=== PATIENT | male | born 1960 | race Caucasian/White ===

== ENCOUNTER 2024-12-07 14:42 | Outpatient (CLI) | payer BC, SELFPAY ==
--- NOTE | 2024-12-07 | ECHO_ITS ---
Patient Info Name: Dylan Park Age: 64 years : 1960 Gender: Male Ht: 71 in Wt: 225 lbs BSA: 2.29 m2 HR: 81 bpm BP: 141 / 85 mmHg Heart Rhythm: Sinus Rhythm Technical Quality: Good Exam Date: 12/07/2024 3:21 PM Exam Location: Echo Lab Patient Status: Outpatient Admit Date: 12/07/2024 Staff Ordering Physician: Hailee, Aviva MCCONNELL Dehydration Unit Operator: Vanessa Deleon RDCS Attending Provider: Hailee, Aviva MCCONNELL Referring Physician: Hailee DURAN; Exam Type: CA echo doppler color flow Study Info Indications R94.31 - Abnormal electrocardiogram ECG EKG Complete two-dimensional, color flow and Doppler transthoracic echocardiogram is performed. Summary 1. Left ventricular chamber dimension is normal. 2. Left ventricular systolic function is normal, estimated at 55-60%. 3. The left ventricular diastolic function is grade I diastolic dysfunction. 4. Right ventricular systolic function is normal. 5. There is mild pulmonic regurgitation. Left Ventricle Left ventricular chamber dimension is normal. Left ventricular systolic function is normal, estimated at 55-60%. There is no increased left ventricular wall thickness. The left ventricular diastolic function is grade I diastolic dysfunction. Right Ventricle Right ventricular chamber dimension is normal. Right ventricular systolic function is normal. Left Atria Left atrial chamber dimension is normal. Right Atria Right atrial chamber dimension is normal. Atrial Septum Intact interatrial septum visualized by color flow imaging. Aortic Valve The aortic valve is trileaflet. There is no aortic valve stenosis. There is no aortic valve regurgitation. Pulmonic Valve The pulmonic valve is not well visualized. There is mild pulmonic regurgitation. Mitral Valve There is trace mitral valve regurgitation. Tricuspid Valve There is trace tricuspid valve regurgitation. Pericardium/Pleural The pericardium appears epicardial fat pad. There is no pericardial effusion. Inferior Vena Cava Normal inferior vena cava with >50% collapse upon inspiration consistent with normal right atrial pressure, 3 mmHg. Aorta The aortic root size at the sinus of Valsalva is normal. Left Ventricular Outflow Tract Name Value Normal LVOT Doppler LVOT Peak Gradient 5 mmHg LVOT Mean Gradient 2 mmHg LVOT VTI 20 cm LVOT VTI/AV VTI Ratio 0.9 Pulmonic Valve Name Value Normal RVOT Doppler RVOT Peak Gradient 3 mmHg PV Doppler PV Peak Gradient 6 mmHg Mitral Valve Name Value Normal MV Doppler MV Decel [place] 380 cm/s2 MV PHT 66 ms MV Area (PHT) 3.3 cm2 4.0-5.0 MV Diastolic Function MV E Peak Velocity 87 cm/s MV A Peak Velocity 121 cm/s MV E/A 0.7 MV Decel Time 229 ms MV Annular TDI MV E/e' (Septal) 10.9 <=8.0 MV E/e' (Lateral) 9.4 <=8.0 MV E/e' (Average) 10.1 Tricuspid Valve Name Value Normal TV Regurgitation Doppler TR Peak Velocity 224 cm/s TR Peak Gradient 20 mmHg Estimated PAP/RSVP RA Pressure 3 mmHg <=5 PA Systolic Pressure 23 mmHg <36 RV Systolic Pressure 23 mmHg <36 Aorta Name Value Normal Ascending Aorta Ao Root Diameter (MM) 3.8 cm Ao Root Diam Index (MM) 1.7 cm/m2 Aortic Valve Name Value Normal AV Doppler AV Peak Velocity 125 cm/s AV Peak Gradient 6 mmHg AV Mean Gradient 3 mmHg AV VTI 22 cm Ventricles Name Value Normal LV Dimensions 2D/MM IVS Diastolic Thickness (2D) 0.9 cm 0.6-1.0 LVID Diastole (2D) 5.2 cm 4.2-5.8 LVIW Diastolic Thickness (2D) 0.8 cm 0.6-1.0 LVID Systole (2D) 3.3 cm 2.5-4.0 LV Mass (2D Cubed) 155.01 g 88.00-224.00 LV Mass Index (2D Cubed) 68 g/m2 49-115 Relative Wall Thickness (2D) 0.30 LV Fractional Shortening/Ejection Fraction 2D/MM LV Fractional Shortening (2D) 37 % 25-43 LV EF (2D Teicholz) 66 % 52-72 LV Diastolic Volume (4C MOD) 89 ml LV EF (4C MOD) 64 % LV Diastolic Volume (2C MOD) 86 ml LV EF (2C MOD) 63 % LV Diastolic Volume (BP MOD) 87 ml 62-150 LV Diastolic Volume Index (BP MOD) 38 ml/m2 34-74 LV Systolic Volume (BP MOD) 33 ml 21-61 LV Systolic Volume Index (BP MOD) 15 ml/m2 11-31 LV EF (BP MOD) 62 % 52-72 LV Diastolic Length (4C) 8.4 cm LV Systolic Length (4C) 6.5 cm LV Stroke Volume (4C MOD) 57 ml Atria Name Value Normal LA Dimensions LA Dimension (MM) 3.3 cm 3.0-4.1 LA Volume (4C A-L) 25 ml LA Volume (BP A-L) 38 ml RA Dimensions RA Area (4C) 10.0 cm2 <=18.0 Report Signatures
--- OUTSIDE RECORDS SUMMARY | 2024-12-07 16:05 | XMS_ITS | Clinical Summary ---
Author Organization [facility] Address [address] [place] [address] Phone Care Team Providers Care Heavy Equipment Mechanic Name Role Phone Antonino Bear MD Primary Care Provider [phone] Allergies No known active allergies Medications HYDROcodone-abiodun taminophen (NORCO) 5-325 MG TabletIndicatio ns:Chronic pain of left knee Take 1 Tablet by mouth every 4 hours as needed for Moderate or more severe pain. 30 Tablet 04/03/2024 Active Active Problems Problem Noted Date Diagnosed Date Arthritis of left knee 11/16/2024 Encounters Date Type Department Care Team Description 12/07/2024 Telephone [facility] [address] [place] [address] Aviva Stephen, JEANETTE Follow-up 12/01/2024 Telephone [facility] [address] [place] [address] Antonino Bear MD Prior Authorization 11/28/2024 Transcribe Orders [facility] [address] [place] [address] Cody Baker MD S/P total knee arthroplasty, right (Primary Dx) 11/23/2024 [facility]phone [facility] [address] [place] [address] Antonino Bear MD Advice Only 11/22/2024 Travel 11/21/2024 Telephone [facility] Central Call Center [address] [place] [address] Antonino Bear MD Care Management 11/16/2024 2:15 PM FLUE GAS ANALYST Office Visit [facility] Medical Group [facility] [address] [place] [address] Aviva Stephen PAC Arthritis of left knee (Primary Dx); Pre-operative general physical examination Discharge Disposition: Discharged to home or Selfcare 11/15/2024 1:41 PM FLUE GAS ANALYST - 11/15/2024 11:59 PM FLUE GAS ANALYST Hospital Encounter [facility] Diagnostic Radiology [address] [place] [address] Cody Baker MD Discharge Disposition: Discharged to home or Selfcare 11/15/2024 1:14 PM FLUE GAS ANALYST - 11/15/2024 1:40 PM FLUE GAS ANALYST Hospital Encounter [facility] Cardiology Services [address] [place] [address] Cody Baker MD Discharge Disposition: Discharged to home or Selfcare 11/15/2024 Travel 11/10/2024 Transcribe Orders [facility] Preop/Pacu II [address] [place] [address] Cody Baker MD Preop testing (Primary Dx) from Last 3 Months Immunizations Immunization Administration Dates Next Due Covid-19 Vaccine, Vector-nr, Rs-ad26, Pf, 0.5 Ml (EMETERIO/J&J) 08/01/2021 TDAP Vaccine 04/24/2019 Family History Medical History Relation Name Comments Cancer Father unknown Stroke Mother Relation Name Status Comments Father Mother Social History Tobacco Use Types Packs/Day Years Used Date Smoking Tobacco: Never Smokeless Tobacco: Never Tobacco Cessation:Counseling Given: No Alcohol Use Standard Drinks/Week Comments Yes 0 (1 standard drink = 0.6 oz pur e alcohol) rare [facility] Utilities Answer Date Recorded In the past 12 months has e roomlinx, gas, oil, or water company threatened to shut off services in your home? No 12/21/2023 Social Connection and Isolation Panel [NHANES] A nswer Date Recorded In a typical week, how many times do you talk on the phone with family, friends, or neighbors? Twice a week 12/21/19 How often do you get togethe r with friends or relatives? Once a week 12/21/2023 How often do you attend chur ch or jehovah's witness services? 1 to 4 times per year 12/21/2023 Do you belong to any clubs o r organizations such as jainism groups, unions, fraternal or athletic groups, or school groups? Yes 12/21/2023 How often do you attend meet ings of the clubs or organizations you belong to? 1 to 4 times per year 12/21/2023 Are you , , di vorced, , never , or living with a partner? 12/21/2023 AUDIT-C Answer Date Recorded Q1: How often do you have a drink containing alc ohol? Monthly or less 12/21/2023 Q2: How many drinks containi ng alcohol do you have on a typical day when you are drinking? 1 or 2 12/21/2023 Q3: How often do you have si x or more drinks on one occasion? Never 12/21/2023 Overall Financial Resource Strain (CARDIA) Answe r Date Recorded How hard is it for you to pa y for the very basics like food, housing, medical care, and heating? Not very hard 12/21/2023 PHQ-2 Answer Date Recorded Total Score - Questions 1-9 0 11/04 [facility] - Occupational Stress Questionnaire Answer Date Recorded Do you feel stress - tense, restless, nervous, or anxious, or unable to sleep at night because your mind is troubled all the time - these days? Only a little 12/21/2023 Exercise Vital Sign Answer Date Recorde d On average, how many days pe r week do you engage in moderate to strenuous exercise (like a brisk walk)? 3 days 12/21/2023 On average, how many minutes do you engage in exercise at this level? 10 min 12/21/2023 Hunger Vital Sign Answer Date Recorded Within the past 12 months, y ou worried that your food would run out before you got the money to buy more. Never true 12/21/19 24 Within the past 12 months, t he food you bought just didn't last and you didn't have money to get more. Never true 12/21/2023 PRAPARE - Transportation Answer Date Re corded In the past 12 months, has l ack of transportation kept you from medical appointments or from getting medications? No 12/02 In the past 12 months, has l ack of transportation kept you from meetings, work, or from getting things needed for daily living? No 12/21/2023 Housing Stability Vital Sign Answer Wilton e Recorded In the last 12 months, was t here a time when you were not able to pay the mortgage or rent on time? No 12/21/2023 In the last 12 months, how many places have you lived? 1 12/21/2023 In the last 12 months, was t here a time when you did not have a steady place to sleep or slept in a mcfp (including now)? No 12/21/2023 Education Answer Date Recorded What is the highest level of school you have completed or the highest degree you have received? Some college, no degree 12/11/2021 Sex and Gender Information Value Date Recorded Sex Assigned at Not on file Legal Sex Male 12:12 AM CDT Gender Identity Not on file Sexual Orientation Not on file Last Filed Vital Signs Vital Sign Reading Time Taken Comments Blood Pressure 116/82 11/16/2024 2:13 PM FLUE GAS ANALYST Pulse 92 11/16/2024 2:13 PM FLUE GAS ANALYST Temperature 36.7 C (98.1 F) 11/16/2024 2:13 PM FLUE GAS ANALYST Respiratory Rate 16 03/29/2024 9:23 AM CDT Oxygen Saturation 99% 11/16/2024 2:13 PM FLUE GAS ANALYST Inhaled Oxygen Concentration - - Weight 100.7 kg (222 lb 0.1 oz) 11/22/2024 1:00 PM FLUE GAS ANALYST Height 179.1 cm (5' 10.51 ) 11/22/2024 1:[address] Body Mass Index 31.39 11/22/2024 1:00 PM FLUE GAS ANALYST Plan of Treatment Upcoming Encounters Date Type Department Care Team (Latest Contact Info) Description 12/12/2024 7:10 AM CDT Hospital Encounter [facility] Periop [address] [place] [address] Cody Baker MD 4 [facility] , [address] [place] [address] 12/12/2024 7:10 AM CDT - 12/12/2024 10:10 AM CDT Surgery [facility] Periop [address] [place] [address] Cody Baker MD 4 [facility] , [address] [place] [address] LEFT TOTAL KNEE ARTHROPLASTY, DEPUY-ATTUNE, COOLING UNIT-[facility], ONE LITER BETA RINSE, RODRICK/DEPUY CONF FOR 12/12 AT 0730 - DS 11/0612/19/2024 10:15 AM CDT Physical Therapy [facility] Rehab at [facility] [address] [facility], [address] [place] [address] Cody Baker MD 4 [facility] , [address] [place] [address] Liu Barron, [place] Discharge Disposition: Discharged to home or Selfcare 12/21/2024 9:00 AM CDT Office Visit [facility] Medical Group - Family Medicine - [place] [address] [place] [address] Antonino Bear MD [address]2 [facility] [address] [place] [address] Scheduled Procedures Name Priority Associated Diagnoses Date/Ti me TOTAL KNEE ARTHROPLASTY PRIMARY OSTEOARTHRITIS OF LEFT KNEE 12/12/2024 7:10 AM CDT Health Maintenance Due Date Last Done Comments Hepatitis C Virus (HCV) Screening 1960 Colonoscopy 2005 Colorectal Cancer Screening 2005 Cologuard 2010 Immunochemical Fecal Occult Blood 2010 Pneumococcal Immunization (5 0+ years) (1 of 1 - PCV) 2010 Zoster Immunization (1 of 2) 2010 Influenza Immunization (#1) 2024 SARS-COV-2 Immunization (2 - season) 2024 08/01/2021 Td Immunization Every 10 Yea rs (Adults With 1 Tdap) 04/24/2029 04/24/2019 Respiratory Syncytial Virus (RSV) Immunization (Adult) (1 - 1-dose 75+ series) 2035 DTaP/Tdap/Td Immunization Discontinued 04/24/2019 PSA Discussion Completed 12/17/2022, 10/23/2021 Hepatitis B Immunization Aged Out No longer eligible based on patient's age to complete this topic Meningococcal Immunization (ACWY) Aged Out No longer eligible based on patient's age to complete this topic Rotavirus Immunization Aged Out No lo nger eligible based on patient's age to complete this topic Procedures Procedure Name Priority Date/Time Associated Diagnosis Comments XR CHEST 2 VIEWS Routine 11/15/2024 1:47 PM FLUE GAS ANALYST Preop testing CBC WITH AUTO DIFFERENTIAL Routine 11/15/2024 1:26 PM FLUE GAS ANALYST Preop testing LIPID PANEL Routine 11/15/2024 1:26 PM FLUE GAS ANALYST Physical exam, annual (Adult) HEMOGLOBIN A1C W/ ESTIMATED GLUCOSE Routine 11/15/2024 1:26 PM FLUE GAS ANALYST Preop testing COMPLETE BLOOD COUNT (CBC) WITH DIFF Routine 11/15/2024 1:26 PM FLUE GAS ANALYST Preop testing CMP (COMPREHENSIVE METABOLIC PANEL) Routine 11/15/2024 1:26 PM FLUE GAS ANALYST Preop testing CULTURE, URINE Routine 11/15/2024 1:26 PM FLUE GAS ANALYST Preop testing EKG 12 LEAD Routine 11/15/2024 1:20 PM FLUE GAS ANALYST Preop testing PSA SCREEN Today 12/17/2022 4:11 PM CDT Screening for prostate cancer from Last 3 Months or Most Recently Relevant to Health Maintenance Results * XR CHEST 2 VIEWS (11/15/2024 1:47 PM FLUE GAS ANALYST) Anatomical Region Laterality Modality Chest N/A Digital Radiogra phy 11/17/2024 1:54 PM FLUE GAS ANALYST Impressions 11/17/2024 1:57 PM FLUE GAS ANALYST IMPRESSION: Minimal to mild bibasilar subsegmental atelectasis and scarring without definite evidence of focal consolidation. Narrative 11/17/2024 1:57 PM FLUE GAS ANALYST EXAM DESCRIPTION: XR CHEST 2 VIEWS REASON FOR STUDY: Pre operative chest xray for knee surgery. TECHNIQUE: Frontal and lateral radiographic view(s) of the chest. COMPARISON: None FINDINGS: The heart, mediastinum, and pulmonary vasculature are grossly unremarkable. There is no definite evidence of a pneumothorax. There is no definite evidence of focal consolidation or pleural effusion. There is a minimal to mild bibasilar subsegmental atelectasis and scarring. The osseous structures are acutely grossly unremarkable. THIS IS AN ELECTRONICALLY VERIFIED FINAL REPORT 11/17/2024 1:54 PM - Electronically signed by Usman Ness D.O. PS: PS Report ID: [id number] Reading Location: [id number] Procedure Note Usman Ness DO - 11/17/2024 EXAM DESCRIPTION: XR CHEST 2 VIEWS REASON FOR STUDY: Pre operative chest xray for knee surgery. TECHNIQUE: Frontal and lateral radiographic view(s) of the chest. COMPARISON: None FINDINGS: The heart, mediastinum, and pulmonary vasculature are grossly unremarkable. There is no definite evidence of a pneumothorax. There is no definite evidence of focal consolidation or pleural effusion. There is a minimal to mild bibasilar subsegmental atelectasis and scarring. The osseous structures are acutely grossly unremarkable. THIS IS AN ELECTRONICALLY VERIFIED FINAL REPORT 11/17/2024 1:54 PM - Electronically signed by Usman Ness D.O. PS: PS Report ID: [id number] Reading Location: [id number] IMPRESSION: Minimal to mild bibasilar subsegmental atelectasis and scarring without definite evidence of focal consolidation. Cody Baker MD IMG DIAGNOSTIC ORDERABLES Macie l Result * HEMOGLOBIN A1C W/ ESTIMATED GLUCOSE (11/15/2024 1:26 PM FLUE GAS ANALYST) HGB-A1C 5.2 4.0 - 6.0 % 11/15/2024 2:31 PM FLUE GAS ANALYST [facility] Est Average Glucose 102.5 mg/dL 11/15/2024 2:31 PM FLUE GAS ANALYST [facility] Blood Venipuncture / Unknown 11/15/2024 1:26 PM FLUE GAS ANALYST 11/15/2024 1:43 PM FLUE GAS ANALYST Narrative [facility] - 11/15/2024 2:31 PM FLUE GAS ANALYST HEMOGLOBIN A1C: DIABETIC PATIENTS: WELL-CONTROLLED: 6.2 - 7.0 INTERMEDIATE WELL-CONTROLLED: 7.0 - 9.0 POORLY-CONTROLLED: >9.0 Specimens containing greater than 5% of Hemoglobin F may result in lower than expected % HbA1C results. Cody Baker MD CHEMISTRY ORDERABLES Final Res ult [facility] [address] [place] [address] * (ABNORMAL) CBC WITH AUTO DIFFERENTIAL (11/15/2024 1:26 PM FLUE GAS ANALYST) WBC 5.97 4.00 - 12.00 10(3)/mcL 11/15/2024 1:46 PM FLUE GAS ANALYST [facility] RBC 4.91 4.40 - 5.80 10(6)/mcL 11/15/2024 1:46 PM FLUE GAS ANALYST [facility] HEMOGLOBIN (HGB) 16.4 13.0 - 16.5 g/dL 11/15/2024 1:46 PM FLUE GAS ANALYST [facility] HEMATOCRIT (HCT) 46.7 38.0 - 50.0 % 11/15/2024 1:46 PM [facility] MCV 95.1 82.0 - 96.0 fL 11/15/2024 1:46 PM [facility] MCH 33.4(H) 26.0 - 32.0 pg 11/15/2024 1:46 PM [facility] MCHC 35.1 31.0 - 36.0 g/dL 11/15/2024 1:46 PM [facility] PLATELET COUNT 261 140 - 440 10(3)/mcL 11/15/2024 1:46 PM [facility] RDW 12.0 11.8 - 15.5 % 11/15/2024 1:46 PM [facility] MPV 10.3 8.0 - 12.6 fL 11/15/2024 1:46 PM [facility] NEUTROPHILS 60.2 40.0 - 68.0 % 11/15/2024 1:46 PM [facility] LYMPHOCYTES 26.1 19.0 - 49.0 % 11/15/2024 1:46 PM [facility] MONOCYTES 9.2 3.0 - 13.0 % 11/15/2024 1:46 PM [facility] EOSINOPHILS 3.5 0.0 - 8.0 % 11/15/2024 1:46 PM [facility] BASOPHILS 1.0 0.0 - 1.0 % 11/15/2024 1:46 PM [facility] ABSOLUTE NEUTROPHILS 3.59 1.40 - 5.30 10(3)/mcL 11/15/2024 1:46 PM [facility] ABSOLUTE LYMPHOCYTES 1.56 0.90 - 3.30 10(3)/mcL 11/15/2024 1:46 PM [facility] ABSOLUTE MONOCYTES 0.55 0.10 - 0.90 10(3)/mcL 11/15/2024 1:46 PM [facility] ABSOLUTE EOSINOPHIL 0.21 0.00 - 0.50 10(3)/mcL 11/15/2024 1:46 PM FLUE GAS ANALYST [facility] ABSOLUTE BASOPHILS 0.06 0.00 - 0.10 10(3)/mcL 11/15/2024 1:46 PM FLUE GAS ANALYST [facility] NRBC PER 100 WBC 0 11/15/19 1:46 PM FLUE GAS ANALYST [facility] Blood Venipuncture / Unknown 11/15/2024 1:26 PM FLUE GAS ANALYST 11/15/2024 1:43 PM FLUE GAS ANALYST us Cody Baker MD HEMATOLOGY ORDERABLES Final Re sult [facility] [address] [place] [address] * (ABNORMAL) LIPID PANEL (11/15/2024 1:26 PM FLUE GAS ANALYST) CHOLESTEROL 132 <200 mg/dL 11/16/2024 3:06 PM FLUE GAS ANALYST [facility] TRIGLYCERIDES 57 <150 mg/dL 11/16/2024 3:06 PM [facility] HDL CHOLESTEROL 40(L) >40 mg/dL 3:06 PM [facility] LDL 81 <130 mg/dL 11/16/2024 3:06 PM [facility] VLDL 11 10 - 50 mg/dL 11/16/2024 3:06 PM [facility] CHOL/HDL RATIO 3.3 0.0 - 4.4 11/16/2024 3:06 PM FLUE GAS ANALYST [facility] NON-HDL CHOLESTEROL 92 <130 mg/dL 11/16/2024 3:06 PM [facility] IS THE PATIENT REQUIRED TO BE FASTING? No 11/16/2024 3:06 PM FLUE GAS ANALYST [facility] Blood Venipuncture / Unknown 11/15/2024 1:26 PM FLUE GAS ANALYST 11/16/2024 2:52 PM FLUE GAS ANALYST us Antonino Bear MD CHEMISTRY ORDERABLES Final Re sult [facility] [address] [place] [address] * CULTURE, URINE (11/15/2024 1:26 PM FLUE GAS ANALYST) CULTURE RESULTS No growth final 11/16/2024 4:22 PM FLUE GAS ANALYST [facility] Culture URINE SPECIMEN COLLECTION, CLEAN CATCH / Unknown Non-Phlebotomy Collection / Unknown 11/15/2024 1:26 PM FLUE GAS ANALYST 11/15/2024 1:43 PM FLUE GAS ANALYST us Cody Baker MD MICROBIOLOGY - GENERAL ORDERAB LES Final Result Performing Organization Address City/[facility]/ZIP Co de Phone Number [facility] [address] [place] [address], * (ABNORMAL) CMP (COMPREHENSIVE METABOLIC PANEL) (11/15/2024 1:26 PM FLUE GAS ANALYST) SODIUM 140 136 - 145 mmol/L 11/15/2024 3:34 PM FLUE GAS ANALYST [facility] POTASSIUM 3.8 3.5 - 5.1 mmol/L 11/15/2024 3:34 PM FLUE GAS ANALYST [facility] CHLORIDE 106 98 - 107 mmol/L 11/15/2024 3:34 PM [facility] CO2, VENOUS 26 22 - 30 mmol/L 11/15/2024 3:34 PM FLUE GAS ANALYST [facility] ANION GAP 11.8 <18.0 mmol/L 11/15/2024 3:34 PM FLUE GAS ANALYST [facility] GLUCOSE 104(H) 70 - 99 mg/dL 11/15/2024 3:34 PM FLUE GAS ANALYST [facility] BUN 13 8 - 26 mg/dL 11/15/2024 3:34 PM [facility] CREATININE, BLOOD 1.00 0.70 - 1.30 mg/dL 11/15/2024 3:34 PM FLUE GAS ANALYST [facility] BUN/CREATININE RATIO 13 12 - 20 ratio 11/15/2024 3:34 PM [facility] TOTAL PROTEIN 7.7 6.0 - 8.0 g/dL 11/15/2024 3:34 PM [facility] ALBUMIN 4.6 3.5 - 5.0 g/dL 11/15/2024 3:34 PM [facility] A/G RATIO 1.5 1.0 - 2.2 11/15/2024 3:34 PM [facility] CALCIUM 9.5 8.7 - 10.5 mg/dL 11/15/2024 3:34 PM [facility] T BILI 1.0 0.2 - 1.2 mg/dL 11/15/2024 3:34 PM [facility] SGOT (AST) 30 6 - 42 U/L 11/15/2024 3:34 PM [facility] SGPT (ALT) 32 6 - 55 U/L 11/15/2024 3:34 PM [facility] ALKALINE PHOSPHATASE 69 40 - 150 U/L 11/15/2024 3:34 PM [facility] IS THE PATIENT REQUIRED TO BE FASTING? No 11/15/2024 3:34 PM [facility] GFR, ESTIMATED >60 >=60 11/15/2024 3:34 PM [facility] Comment: Creatinine Clearance is the preferred criteria for selecting drug dose adjustments in renally impaired patients. The GFR is provided as additional pertinent clinical information. GFR is reported in mL/min/1.73 sq m. Calculation based on the Chronic Kidney Disease Epidemiology Collaboration (CKD- EPI) equation refit without adjustment for race. GFR, EST. >60 >=60 025 3:34 PM [facility] GFR, EST. NONAFRICAN >60 >=60 11/15/2024 3:34 PM [facility] Blood Venipuncture / Unknown 11/15/2024 1:26 PM FLUE GAS ANALYST 11/15/2024 1:43 PM FLUE GAS ANALYST Cody Baker MD CHEMISTRY ORDERABLES Final Res ult [facility] [place] [address] * EKG 12 LEAD (11/15/2024 1:20 PM FLUE GAS ANALYST) Ventricular Rate 89 BPM EXTERNAL EKG Atrial Rate 89 BPM EXTERNAL EKG P-R Interval 168 ms EXTERNAL EKG QRS Duration 78 ms EXTERNAL EKG Q-T Duration 346 ms EXTERNAL EKG QTC CALCULATION 420 ms EXTERNAL EKG P Welch 43 degrees EXTERNAL EKG R Welch -28 degrees EXTERNAL EKG T Welch 40 degrees EXTERNAL EKG 11/15/2024 1:20 PM FLUE GAS ANALYST Impressions EXTERNAL EKG - 11/16/2024 5:06 PM FLUE GAS ANALYST Normal sinus rhythm Cannot rule out Anterior infarct , age undetermined Abnormal ECG No previous ECGs available Confirmed by Felipe Weems ([id number]) on 11/16/2024 5:06:22 PM Narrative Procedure Note Felipe Weems MD - 11/16/2024 IMPRESSION: Normal sinus rhythm Cannot rule out Anterior infarct , age undetermined Abnormal ECG No previous ECGs available Confirmed by Felipe Weems ([id number]) on 11/16/2024 5:06:22 PM us Cody Baker MD IMG ECG ORDERABLES Final Resul t Performing Organization Address City/[facility] Co de Phone Number EXTERNAL EKG * PSA SCREEN (12/17/2022 4:11 PM CDT) PSA SCREEN, TOTAL 0.98 <=4.00 ng/mL 12/17/2022 5:52 PM CDT [facility] Blood Venipuncture / Unknown 12/17/2022 4:11 PM CDT 12/17/2022 4:56 PM CDT Narrative [facility] - 12/17/2022 5:52 PM CDT PSA NOTE: The PSA value should be used in conjunction with information available from clinical evaluation and other diagnostic procedures. us Antonino Bear MD CHEMISTRY ORDERABLES Final Re sult [facility] [address] [place] [address] from Last 3 Months or Most Recently Relevant to Health Maintenance Insurance GENERIC Care Teams Heavy Equipment Mechanic Relationship Specialty Start Date End Date Antonino eBar MD [address] [address] PCP - General Family Medicine 12/18/21
--- OUTSIDE RECORDS SUMMARY | 2024-12-07 16:05 | XMS_ITS | Patient Health Summary ---
Author Organization [facility] Address [address] [place] [address] Care Team Providers Care Diathermy Equipment Repairer Name Role Phone Antonino Bear MD Primary Care Provider [phone] Note from [facility],non-owned Affiliates and Associated Physician Practices is amultiple site organization consisting of ambulatory clinics and hospital sitesin [place], [place], [place] and [place]. This disclosure is being madepursuant to the Care Everywhere program and may not contain all information available regarding this patient. Last updated 18.[facility] Allergies No known active allergies Medications * Be aware that medications may not be up to date on this document. Alwaysverify current medications with the patient. * Cholecalciferol 50 MCG (2000 UT) Take 1 (one) tablet by mouth once daily * cyclobenzaprine (Flexeril) 10 MG tablet Take 1 (one) tablet by mouth 3 times daily as needed * HYDROcodone-acetaminophen ([place]) 5-325 MG tablet Take 1 (one) tablet by mouth as needed * Multiple Vitamin (Multi-Vitamins) TABS Take 1 (one) tablet by mouth once daily * naproxen (Naprosyn) 500 MG tablet(Started 03/31/2023) Take 1 (one) tablet by mouth as needed * tolterodine ER 24hr (Detrol LA) 2 MG capsule(Started 12/21/2022) Take 1 (one) capsule by mouth once daily * TURMERIC PO Take 1 tablet by mouth once daily * vitamin E (Tocopheryl) 100 UNIT capsule Take 1 (one) capsule by mouth once daily * ibuprofen (Motrin) 600 MG tablet Take 1 (one) tablet by mouth every 6 hours as needed for Pain Immunizations * TDAP (7yrs+)(Given 04/24/2019) Social History Tobacco Use Types Packs/Day Years Used Date Smoking Tobacco: Never Smokeless Tobacco: Never Alcohol Use Standard Drinks/Week Comments Yes 0 (1 standard drink = 0.6 oz pur e alcohol) occassionally Sex and Gender Information Value Date Recorded Sex Assigned at Not on file Gender Identity Not on file Sexual Orientation Not on file Last Filed Vital Signs Vital Sign Reading Time Taken Comments Blood Pressure 133/86 09/28/2023 1:03 PM [employer] Pulse 96 09/28/2023 1:03 PM [employer] Temperature - - Respiratory Rate - - Oxygen Saturation - - Inhaled Oxygen Concentration - - Weight 101.6 kg (224 lb) 09/28/2023 1:03 PM [employer] Height 180.3 cm (5' 11 ) 09/28/2023 1:03 PM [employer] Body Mass Index 31.24 09/28/2023 1:03 PM [employer] Care Teams Diathermy Equipment Repairer Relationship Specialty Start Date End Date Antonino Bear MD [address] [place] [id number] PCP - General Family Medicine 09/28/23
--- OUTSIDE RECORDS SUMMARY | 2024-12-07 16:05 | XMS_ITS | Referral Summary ---
Author Organization [facility] [place] [address] [place] [address] Address [address] [place] [address] Care Team Providers Care Hydro Electric Station Operator Name Role Phone Antonino Reich PT Unavailable UnavailPromise Pedersen WAREHOUSE FREIGHT HANDLER Unavailable Unavailab Antonino Hou MD Primary Care Provider [phone] Encounters Date Type Department Care Team Description 11/28/2024 Orders Only [facility] Medical [facility] Orthopedics and Sports Medicine [address] [place] [address] [address] [place] [address] Cody Baker MD S/P total knee arthroplasty, right (Primary Dx) 11/28/2024 Orders Only [facility] Orthopedics and Sports Medicine [address] [place] [address] [address] [place] [address] Cody Baker MD S/P total knee arthroplasty, right (Primary Dx) 11/28/2024 Telephone [facility] Orthopedics and Sports Medicine [address] [place] [address] [address] [place] [address] Cody Baker MD 11/21/2024 Telephone [facility] Orthopedics and Sports Medicine [address] [place] [address] [address] [place] [address] Sarah Beth Kay MA 11/21/2024 10:15 AM POLL WATCHER Office Visit [facility] Orthopedics and Sports Medicine [address] [place] [address] [address] [place] [address] Yaquelin Diego PA Primary osteoarthritis of left knee (Primary Dx) 09/18/2024 Telephone [facility] Orthopedics and Sports Medicine [address] [facility] [address] [place] [address] Cody Baker MD from Last 3 Months Allergies No known active allergies Medications HYDROcodone-acet aminophen (NORCO) 5-325 mg per tabletIndication s:Pain Take 1 tablet by mouth every 6 (six) hours as needed Active naproxen (NAPROSYN) 500 mg tablet Take 1 tablet (500 mg total) by mouth 2 (two) times a day as needed for pain Take with food 60 tablet 1 05/05/2022 Active Active Problems Problem Noted Date Diagnosed Date Primary osteoarthritis of left knee 08/04/2024 SNHL (sensory-neural hearing loss), asymmetrical 12/02/2022 Assessment & Plan (12/02/2022 3:39 PM POLL WATCHER): Hearing test - consider Right ear tube placement in the Operating room based on results Finish Amoxicillin Continue to work with Dentist regarding teeth [facility] Allergic rhinitis 2020 Assessment & Plan (2020 4:06 PM CDT): Flonase 2 sprays into each nostril while looking down over the sink, do not sniff in or blow nose after use for at least 30 minutes Continue Claritin daily or Cetirizine (Zyrtec) 10 mg daily Augmentin with a meal twice daily for 10 days Follow up with Dentist Dental caries 2020 Assessment & Plan (2020 4:06 PM CDT): Flonase 2 sprays into each nostril while looking down over the sink, do not sniff in or blow nose after use for at least 30 minutes Continue Claritin daily or Cetirizine (Zyrtec) 10 mg daily Augmentin with a meal twice daily for 10 days Follow up with Dentist Vitamin D deficiency 06/08/2019 History of tear of ACL (anterior cruciate ligame nt) 06/08/2019 Overview (05/26/2020): Right knee Complex tear of medial menis cus of right knee as current injury 03/29/2018 Overview (03/29/2018): Added automatically from request for surgery [id number] Complex tear of lateral meni scus of right knee as current injury 03/29/2018 Overview (03/29/2018): Added automatically from request for surgery [id number] Primary osteoarthritis of right knee 03/29/2018 Overview (05/05/2022): Added automatically from request for surgery [id number] Immunizations Immunization Administration Dates Next Due Tdap 04/24/2019 Social History Tobacco Use Types Packs/Day Years Used Date Smoking Tobacco: Never Smokeless Tobacco: Never Tobacco Cessation:Counseling Given: Not Answered Alcohol Use Standard Drinks/Week Comments Yes 0 (1 standard drink = 0.6 oz pur e alcohol) very rarely AUDIT-C Answer Date Recorded Q1: How often do you have a drink containing alcohol? Never 11/21/2024 Q2: How many drinks containi ng alcohol do you have on a typical day when you are drinking? Patient does not drink Q3: How often do you have si x or more drinks on one occasion? Never 11/21/2024 Sex and Gender Information Value Date Recorded Sex Assigned at Not on file Legal Sex Male 9:27 AM POLL WATCHER Gender Identity Male 10/30/2021 10:25 AM POLL WATCHER Sexual Orientation Straight 10/30/2021 10 :25 AM POLL WATCHER Last Filed Vital Signs Vital Sign Reading Time Taken Comments Blood Pressure 125/70 11/21/2024 10:25 AM POLL WATCHER Pulse 76 11/21/2024 10:25 AM POLL WATCHER Temperature 36.8 C (98.2 F) 07/16/2023 4:41 PM CDT Respiratory Rate 18 11/21/2024 10:25 AM POLL WATCHER Oxygen Saturation 97% 07/16/2023 4:41 PM CDT Inhaled Oxygen Concentration - - Weight 102.5 kg (226 lb) 11/21/2024 10:25 AM POLL WATCHER Height 175.3 cm (5' 9 ) 11/21/2024 10:25 AM POLL WATCHER Body Mass Index 33.37 11/21/2024 10:25 AM POLL WATCHER Plan of Treatment Not on file Insurance [employer] CHO[employer] [place]F PPO [place] Care Teams Hydro Electric Station Operator Relationship Specialty Start Date End Date Antonino Bear MD [address] [address] PCP - General Family Medicine 12/02/22 Antonino Reich, PT Physical Therapist Physical Therapy 04/27/18 Promise Davis, WAREHOUSE FREIGHT HANDLER Physical Therapist Physical Therapy 05/06/18
--- OUTSIDE RECORDS SUMMARY | 2024-12-07 16:05 | XMS_ITS | Encounter Summary ---
Author Organization [facility] Address [address] [place] [address] Phone Care Team Providers Care Water Quality Tester Name Role Phone Antonino Bear MD Primary Care Provider [phone] Reason for Visit * Reason Onset Date Comments Follow-up 12/07/2024 Encounter Details Date Type Department Care Team (Late st Contact Info) Description 12/07/2024 Telephone [facility] [address] [place] [phone] Aviva Stephen, [facility] [address] [place] [address] Follow-up Social History Tobacco Use Types Packs/Day Years Used Date Smoking Tobacco: Never Smokeless Tobacco: Never Alcohol Use Standard Drinks/Week Comments Yes 0 (1 standard drink = 0.6 oz pur e alcohol) rare [facility] Utilities Answer Date Recorded In the past 12 months has [employer], gas, oil, or water [employer] threatened to shut off services in your home? No 12/21/2023 Social Connection and Isolation Panel [NHANES] A nswer Date Recorded In a typical week, how many times do you talk on the phone with family, friends, or neighbors? Twice a week 12/21/19 24 How often do you get togethe r with friends or relatives? Once a week 12/21/2023 How often do you attend [facility] or mormonism services? 1 to 4 times per year 12/21/2023 Do you belong to any clubs o r organizations such as congregation groups, unions, fraternal or athletic groups, or [...] Total Score - Questions 1-9 0 11/04 [facility] of Occupat ional Health - Occupational Stress [...] place to sleep or slept in a senior care (including now)? No 12/21/2023 Education Answer Date Recorded What is the highest level of school you have completed or the highest degree you have received? Some college, no degree 12/11/2021 Sex and Gender Information Value Date Recorded Sex Assigned at Not on file Legal Sex Male 12:12 AM CDT Gender Identity Not on file Sexual Orientation Not on file documented as of this encounter Miscellaneous Notes * Telephone Encounter - Rosa Maria Donis RN - 12/07/2024 1:36 PM CST Called and spoke with patient and he is getting it done today. He will have the result faxed to us. N LOADER * Telephone Encounter - Aviva Stephen PAC - 12/07/2024 1:05 PM GRAIN LOADER Did patient ever get his echo for pre op testing? N LOADER documented in this encounter Plan of Treatment Upcoming Encounters Date Type Department Care Team (Latest Contact Info) Description 12/12/2024 7:10 AM CDT [facility] [place] [address] Cody Baker MD [address] [place] [address], [address] [place] [address] 12/12/2024 7:10 AM CDT - 12/12/2024 10:10 AM CDT Surgery [facility] Periop [address] [facility] [place] [address] Cody Baker MD [address] [facility] , [address] [place] [address] LEFT TOTAL KNEE ARTHROPLASTY, DEPUY-ATTUNE, COOLING UNIT-[facility], ONE LITER BETA RINSE, RODRICK/DEPUY CONF FOR 12/12 AT 0730 - DS 11/0612/19/2024 10:15 AM CDT Physical Therapy [facility]hab at [facility] [address] [facility], [address] [place] [address] Cody Baker MD [address] [facility] , [address] [place] [address] Liu Barron, PT [place] Discharge Disposition: Discharged to home or Selfcare 12/21/2024 9:00 AM CDT [facility] [address] [place] [address] Antonino Bear MD #2 [facility] [address] [place] [address] Scheduled Procedures Name Priority Associated Diagnoses Date/Ti me TOTAL KNEE ARTHROPLASTY PRIMARY OSTEOARTHRITIS OF LEFT KNEE 12/12/2024 7:10 AM CDT documented as of this encounter Visit Diagnoses Not on filedocumented in this encounter Additional Health Concerns Assessment Noted Time PHQ-9 Depression Total Score: 0 11/16/19 25 2:16 PM GRAIN LOADER documented as of this encounter Care Teams Water Quality Tester Relationship Specialty Start Date End Date Antonino Bear MD [address]2 [facility] [address] [place] [address] PCP - General Family Medicine 12/18/21 documented as of this encounter
--- OUTSIDE RECORDS SUMMARY | 2024-12-07 16:05 | XMS_ITS | Referral Summary ---
Author Organization [facility] Address [address] [place] [address] Care Team Providers Care Candy Attendant Name Role Phone Antonino Bear MD Primary Care Provider [phone] Source Comments [facility],non-owned Affiliates and Associated Physician Practices is amultiple site organization consisting of ambulatory clinics and hospital sitesin [place], [place], [place] and [place]. This disclosure is being madepursuant to the Care Everywhere program and may not contain all information available regarding this patient. Last updated 18.[facility] Allergies No known active allergies Medications * Be aware that medications may not be up to date on this document. Alwaysverify current medications with the patient. Medication Sig Dispensed Refills Start Date End Date Status Cholecalciferol 50 MCG (1999) Take 1 (one) tablet by mouth once daily Active cyclobenzaprine (Flexeril) 10 MG tablet Take 1 (one) tablet by mouth 3 times daily as needed Active HYDROcodone-acetaminop hen ([place]) 5-325 MG tablet Take 1 (one) tablet by mouth as needed Active Multiple Vitamin (Multi-Vitamins) TABS Take 1 (one) tablet by mouth once daily Active naproxen (Naprosyn) 500 MG tablet Take 1 (one) tablet by mouth as needed 03/31/2023 Active tolterodine ER 24hr (Detrol LA) 2 MG capsule Take 1 (one) capsule by mouth once daily 12/21/2022 Active TURMERIC PO Take 1 tablet by mouth once daily Active vitamin E (Tocopheryl) 100 UNIT capsule Take 1 (one) capsule by mouth once daily Active ibuprofen (Motrin) 600 MG tablet Take 1 (one) tablet by mouth every 6 hours as needed for Pain Active Immunizations Name Administration Dates Next Due TDAP (7yrs+) 04/24/2019 Social History Tobacco Use Types Packs/Day [...] Comments Blood Pressure 133/86 09/28/2023 1:03 PM CLOUD ENGINEER Pulse 96 09/28/2023 1:03 PM CLOUD ENGINEER Temperature - - Respiratory Rate - - Oxygen Saturation - - Inhaled Oxygen Concentration - - Weight 101.6 kg (224 lb) 09/28/2023 1:03 PM CLOUD ENGINEER Height 180.3 cm (5' 11 ) 09/28/2023 1:03 PM CLOUD ENGINEER Body Mass Index 31.24 09/28/2023 1:03 PM CLOUD ENGINEER Plan of Treatment Not on file Care Teams Candy Attendant Relationship Specialty Start Date End Date Antonino Bear MD [address] [address] PCP - General Family Medicine 09/28/23
--- OUTSIDE RECORDS SUMMARY | 2024-12-07 16:05 | XMS_ITS | Clinical Summary ---
Author Organization [address] Address [address] [place] [address] Care Team Providers Care Meter Engineer Name Role Phone Antonino Reich PT Unavailable Unavaila Promise Walsh CONTACT MANAGER Unavailable Unavailab Antonino Hou MD Primary Care Provider [phone] Allergies No known active allergies Medications HYDROcodone-acet [...] 12/02/2022 Assessment & Plan (12/02/2022 3:39 PM HYDRAULIC ELEVATOR CONSTRUCTOR): Hearing test - consider Right ear tube placement in the Operating room based on results Finish Amoxicillin Continue to work with Dentist regarding teeth [facility] Allergic rhinitis 2020 Assessment [...] (03/29/2018): Added automatically from request for surgery [id number] Complex tear of lateral meni scus of right knee as current injury 03/29/2018 Overview (03/29/2018): Added automatically from request for surgery [id number] Primary osteoarthritis of right knee 03/29/2018 Overview (05/05/2022): Added automatically from request for surgery [id number] Encounters Date Type Department Care Team Description 11/28/2024 Orders Only [facility] Orthopedics and Sports Medicine [address] [place] [address] [address] [place] [address] Cody Baker MD S/P total knee arthroplasty, right (Primary Dx) 11/28/2024 Orders Only [facility]ics and Sports Medicine [address] [place] [address] [address] [place] [address] Cody Baker MD S/P total knee arthroplasty, right (Primary Dx) 11/28/2024 Telephone [facility]ics and Sports Medicine [address] [place] [address] [address] [place] [address] Cody Baker MD 11/21/2024 10:15 AM HYDRAULIC ELEVATOR CONSTRUCTOR Office Visit [facility] [address] [place] [address] [address] [place] [address] Yaquelin Diego PA Primary osteoarthritis of left knee (Primary Dx) 11/21/2024 Telephone [facility] Sports Medicine [address] [place] [address] [address] [place] [address] Sarah Beth Kay MA 09/18/2024 Telephone [facility] [address] [place] [address] [address] [place] [address] Cody Baker MD from Last 3 Months Immunizations Immunization Administration Dates Next Due Tdap 04/24/2019 Family History Medical History Relation Name Comments Cancer Other Relation Name Status Comments Other Social History Tobacco Use Types Packs/Day Years [...] on file Legal Sex Male 9:27 AM HYDRAULIC ELEVATOR CONSTRUCTOR Gender Identity Male 10/30/2021 10:25 AM HYDRAULIC ELEVATOR CONSTRUCTOR Sexual Orientation Straight 10/30/2021 10 :25 AM HYDRAULIC ELEVATOR CONSTRUCTOR Obstetrics History Last Filed Vital Signs Vital Sign Reading Time Taken Comments Blood Pressure 125/70 11/21/2024 10:25 AM HYDRAULIC ELEVATOR CONSTRUCTOR Pulse 76 11/21/2024 10:25 AM HYDRAULIC ELEVATOR CONSTRUCTOR Temperature 36.8 C (98.2 F) 07/16/2023 4:41 PM CDT Respiratory Rate 18 11/21/2024 10:25 AM HYDRAULIC ELEVATOR CONSTRUCTOR Oxygen Saturation 97% 07/16/2023 4:41 PM CDT Inhaled Oxygen Concentration - - Weight 102.5 kg (226 lb) 11/21/2024 10:25 AM HYDRAULIC ELEVATOR CONSTRUCTOR Height 175.3 cm (5' 9 ) 11/21/2024 10:25 AM HYDRAULIC ELEVATOR CONSTRUCTOR Body Mass Index 33.37 11/21/2024 10:25 AM HYDRAULIC ELEVATOR CONSTRUCTOR Plan of Treatment Health Maintenance Due Date Last Done Comments Colon Cancer Screening-Colonoscopy 1960 Depression Screening 1960 Hepatitis C Screening 1960 Prostate Cancer Screening-PSA 1960 Hepatitis B Screening 1978 Regular Well Visit/Exam 18-64 1978 Zoster Vaccine (1 of 2) 2010 Covid-19 Vaccine (2 - 2023-2 5 season) 2024 08/01/2021 Influenza Vaccine (#1) 2024 DTaP/Tdap/Td Vaccine (2 - Td or Tdap) 04/24/2029 04/24/2019 Pneumococcal vaccine <65 Aged Out No longer eligible based on patient's age to complete this topic Insurance CHOICE PRF PPO [place] Care Teams Meter Engineer Relationship Specialty Start Date End Date Antonino Bear MD [address] [address] [place] [address] PCP - General Family Medicine 12/02/22 Antonino Reich, PT Physical Therapist Physical Therapy 04/27/18 Promise Davis, CONTACT MANAGER Physical Therapist Physical Therapy 05/06/18
--- OUTSIDE RECORDS SUMMARY | 2024-12-07 16:05 | XMS_ITS | Clinical Summary ---
Author Organization [facility] [employer] Address [address] [facility] [place] [address] Care Team Providers Care Hearing Specialist Name Role Phone Antonino Bear MD Primary Care Provider [phone] Source Comments [facility] [employer],non-owned Affiliates and Associated Physician Practices is amultiple site organization consisting of ambulatory clinics and hospital sitesin [place], [place], [place] and [place]. This disclosure is being madepursuant to the Care Everywhere program and may not contain all information available regarding this patient. Last updated 18.[facility] [employer] Allergies No known active allergies Medications * [...] times daily as needed Active HYDROcodone-acetaminop hen ([place]) 5-325 MG tablet Take 1 (one) tablet [...] Comments Blood Pressure 133/86 09/28/2023 1:03 PM TISSUE TECHNOLOGIST Pulse 96 09/28/2023 1:03 PM TISSUE TECHNOLOGIST Temperature - - Respiratory Rate - - Oxygen Saturation - - Inhaled Oxygen Concentration - - Weight 101.6 kg (224 lb) 09/28/2023 1:03 PM TISSUE TECHNOLOGIST Height 180.3 cm (5' 11 ) 09/28/2023 1:03 PM TISSUE TECHNOLOGIST Body Mass Index 31.24 09/28/2023 1:03 PM TISSUE TECHNOLOGIST Plan of Treatment Health Maintenance Due Date Last Done Comments COLOGUARD (AGES 45-75) - COL ON CA SCREENING 1960 COLON MONITORING 1960 COLONOSCOPY - COLON CA SCREENING 1960 CT COLONOGRAPHY - COLON CA SCREENING 1960 Colorectal Cancer Screening 1960 FIT - COLON CA SCREENING 1960 FLEX SIG - COLON CA SCREENING 1960 LIPID TESTING 1960 HIV SCREENING 1975 HEPATITIS C SCREENING 07/13/1978 PNEUMOCOCCAL VACCINE 50+ (1 of 1 - PCV) 2010 ZOSTER VACCINE (1 of 2) 2010 SCREENING FOR DIABETES 09/28/2023 COVID-19 VACCINE ( - 2023-2 5 season) 2024 INFLUENZA VACCINE (#1) 2024 DEPRESSION SCREENING 10/04/2024 DTAP/TDAP/TD VACCINES (2 - T d or Tdap) 04/24/2029 04/24/2019 Respiratory Syncytial Virus (RSV) Vaccine Pt: or over 60 yrs (1 - 1-dose 75+ series) 2035 HEPATITIS B VACCINE Aged Out No longe r eligible based on patient's age to complete this topic HIB VACCINE Aged Out No longer eligi ble based on patient's age to complete this topic HPV VACCINE Aged Out No longer eligi ble based on patient's age to complete this topic MENINGOCOCCAL (Group B) VACCINE Aged Out No longer eligible based on patient's age to complete this topic MENINGOCOCCAL VACCINE Aged Out No tammi geronimo eligible based on patient's age to complete this topic PNEUMOCOCCAL VACCINE Aged Out No long er eligible based on patient's age to complete this topic Care Teams Hearing Specialist Relationship Specialty Start Date End Date Antonino Bear MD [address] [address] PCP - General Family Medicine 09/28/23
--- OUTSIDE RECORDS SUMMARY | 2024-12-07 16:05 | XMS_ITS | Encounter Summary ---
Author Organization [facility] Address [address] [place] [address] Phone Care Team Providers Care Water Use Inspector Name Role Phone Antonino Bear MD Primary Care Provider Reason for Visit * Reason Onset Date Comments Prior Authorization 12/01/2024 Encounter Details Date Type Department Care Team (Late st Contact Info) Description 12/01/2024 Telephone [facility] [address] [place] [address] Antonino Bear MD [address] [address] Prior Authorization Social History Tobacco Use Types Packs/Day Years Used Date Smoking Tobacco: Never Smokeless Tobacco: Never Alcohol Use Standard Drinks/Week Comments Yes 0 (1 standard drink = 0.6 oz pur e alcohol) rare [facility] Utilities Answer Date Recorded In the past 12 months has [employer], gas, oil, or water [employer] threatened to shut off services in your home? No 12/21/2023 Social Connection and Isolation Panel [NHANES] A nswer Date Recorded In a typical week, how many times do you talk on the phone with family, friends, or neighbors? Twice a week 12/21/19 How often do you get togethe r with friends or relatives? Once a week 12/21/2023 How often do you attend [facility] or congregational services? 1 to 4 times per year 12/21/2023 Do you belong to any clubs o r organizations such as moravian groups, unions, fraternal or athletic groups, or [...] Total Score - Questions 1-9 0 11/04 [facility] of Occupat ional Health - Occupational Stress [...] place to sleep or slept in a care home (including now)? No 12/21/2023 Education Answer Date [...] encounter Miscellaneous Notes * Telephone Encounter - Valentine Kline RN - 12/01/2024 12:39 PM TEAM ASSISTANT S: Magdalena, from Authorization department from [facility], calling. B: Patient will have an echocardiogram scheduled on 12/07 at [facility]. A: Caller is requesting for a prior authorization for the echocardiogram. R: Please process the prior authorization. ASSISTANT documented in this encounter Plan of Treatment Upcoming Encounters Date Type Department Care Team (Latest Contact Info) Description 12/12/2024 7:10 AM CDT [facility] [address] [place] [address] Cody Baker MD [address], [address] [place] [address] 12/12/2024 7:10 AM CDT - 12/12/2024 10:10 AM CDT [facility] 1 [place] [address] Cody Baker MD [address], [address] [place] [address] LEFT TOTAL KNEE ARTHROPLASTY, DEPUY-ATTUNE, CO[facility]IT-[facility], ONE LITER BETA RINSE, RODRICK/DEPUY CONF FOR 12/12 AT 0730 - DS 11/0612/19/2024 10:15 AM CDT Physical Therapy [facility] at [facility] [address] [facility], [address] [place] [address] Cody Baker MD [address] [place] [address] , [address] [place] [address] Liu Barron, PT [place] Discharge Disposition: Discharged to home or Selfcare 12/21/2024 9:00 AM CDT [facility] [address] [place] [address] Antonino Bear MD #[address] [address] Scheduled Procedures Name Priority Associated Diagnoses Date/Ti me TOTAL KNEE ARTHROPLASTY PRIMARY OSTEOARTHRITIS OF LEFT KNEE 12/12/2024 7:10 AM CDT documented as of this encounter Visit Diagnoses Not on filedocumented in this encounter Additional Health Concerns Assessment Noted Time PHQ-9 Depression Total Score: 0 11/16/19 25 2:16 PM TEAM ASSISTANT documented as of this encounter Care Teams Water Use Inspector Relationship Specialty Start Date End Date Antonino Bear MD #[address] [address] PCP - General Family Medicine 12/18/21 documented as of this encounter
--- OUTSIDE RECORDS SUMMARY | 2024-12-07 16:05 | XMS_ITS | Clinical Summary ---
Author Organization [facility] Address [address] [place] [address] Care Team Providers Care Food Preparer Name Role Phone Antonino Bear MD Primary Care Provider [phone] Allergies No known active allergies Medications cholecalciferol 50,000 unit Capsule Take 1 Capsule (50,000 Units) by mouth every 7 days. Take weekly for 8 weeks only then take Vit D3 2,000 IU over the counter daily. 8 Capsule 06/06/2019 Active Active Problems Problem Noted Date Diagnosed Date Primary osteoarthritis of right knee 10/11/2020 Allergic rhinitis 2020 Overview (10/11/2020): Last Assessment & Plan: Flonase 2 sprays into each nostril while looking down over the sink, do not sniff in or blow nose after use for at least 30 minutes Continue Claritin daily or Cetirizine (Zyrtec) 10 mg daily Augmentin with a meal twice daily for 10 days Follow up with Dentist Vitamin D deficiency 06/08/2019 History of tear of ACL (anterior cruciate ligame nt) 06/08/2019 Overview (06/08/2019): Right knee Immunizations Immunization Administration Dates Next Due (ADACEL/BOOSTRIX)(10 YR UP) TDAP VACCINE, 0.5ML, IM 04/24/2019 Family History Medical History Relation Name Comments Stroke Brother 1 No Known Problems Brother 2 Cancer Father Unknown Maternal Grandfather Sudden Maternal Grandmother Diabetes Mother Unknown Paternal Grandfather Unknown Paternal Grandmother No Known Problems Sister No Known Problems Son Relation Name Status Comments Brother 1 Alive Brother 2 Alive Father Maternal Grandfather Maternal Grandmother Mother Alive Paternal Grandfather Paternal Grandmother Sister Alive Son Alive Social History Tobacco Use Types Packs/Day Years Used Date Smoking Tobacco: Never Smokeless Tobacco: Never Tobacco Cessation:Counseling Given: No Alcohol Use Standard Drinks/Week Comments Yes 0 (1 standard drink = 0.6 oz pur e alcohol) occasionally Sex and Gender Information Value Date Recorded Sex Assigned at Not on file Legal Sex Male 5:51 PM CDT Gender Identity Not on file Sexual Orientation Not on file Last Filed Vital Signs Vital Sign Reading Time Taken Comments Blood Pressure 146/78 03/11/2023 8:27 AM CDT Pulse 101 10/14/2021 9:29 AM STRUCTURAL IRONWORKER Temperature 36.4 C (97.6 F) 10/14/2021 9:29 AM STRUCTURAL IRONWORKER Respiratory Rate 18 10/14/2021 9:29 AM STRUCTURAL IRONWORKER Oxygen Saturation 98% 10/14/2021 9:29 AM STRUCTURAL IRONWORKER Inhaled Oxygen Concentration - - Weight 106.6 kg (235 lb) 03/11/2023 8:27 AM CDT Height 182.9 cm (6') 03/11/2023 8:27 AM CDT Body Mass Index 31.87 03/11/2023 8:27 AM CDT Plan of Treatment Health Maintenance Due Date Last Done Comments COLORECTAL SCREENING 2005 Colorectal Cancer Screening 2005 FIT-DNA Q 3 years 2005 FIT/FOBT Q 1 year 2005 Flex Sig/CT Colonography Q 5 years 2005 ZOSTER VACCINE (1 of 2) 2010 INFLUENZA VACCINE (#1) 2024 07/30/2021 DTAP/TDAP/TD VACCINES (2 - Td or Tdap) 04/24/2029 RSV VACCINE (60+ or ) (1 - 1-dose 75+ series) 2035 Insurance [employer] OPEN ACCESS * Guarantor: [employer] Account Type Relation to Patient Date of Phone Billing Address Corporate Employer ATTN: [employer] [address] [address] Care Teams Food Preparer Relationship Specialty Start Date End Date Antonino Bear MD [address] [place] [address] PCP - General Internal Medicine 03/11/23
--- OUTSIDE RECORDS SUMMARY | 2024-12-07 16:05 | XMS_ITS | Encounter Summary ---
Author Organization [facility] Address [address] [place] [address] Phone Care Team Providers Care Dye Colorist Dyer Name Role Phone Antonino Bear MD Primary Care Provider [phone] Encounter Details Date Type Department Care Team (Late st Contact Info) Description 02/15/2023 Telephone [facility] [address] [place] [phone] Antonino Bear MD [address] [address] Social History Tobacco Use Types Packs/Day Years Used Date Smoking Tobacco: Never Smokeless Tobacco: Never Alcohol Use Standard Drinks/Week Comments Not Currently 0 (1 standard drink = 0.6 oz pur e alcohol) PHQ-2 Answer Date Recorded Total Score - Questions 1-9 0 12/02 Education Answer Date Recorded What is the highest level of school you have completed or the highest degree you have received? Some college, no degree 12/11/2021 Sex and Gender Information Value Date Recorded Sex Assigned at Not on file Legal Sex Male 12:12 AM CDT Gender Identity Not on file Sexual Orientation Not on file documented as of this encounter Plan of Treatment Upcoming Encounters Date Type Department Care Team (Latest Contact Info) Description 12/12/2024 7:10 AM CDT Hospital Encounter [facility] [address] [place] [phone] Cody Baker MD [address] [facility] , [address] [place] [address] 12/12/2024 7:10 AM CDT - 12/12/2024 10:10 AM CDT Surgery [facility] [address] [place] [address] Cody Baker MD [address] [facility] , [address] [place] [address] LEFT TOTAL KNEE ARTHROPLASTY, DEPUY-ATTUNE, COOLING UNIT[facility], ONE LITER BETA RINSE, RODRICK/DEPUY CONF FOR 12/12 AT 0730 - DS 11/0612/19/2024 10:15 AM CDT Physical Therapy [facility] [address] [facility], [address] [place] [phone] Cody Baker MD [address] [facility] , [address] [place] [address] Liu Barron, [place] Discharge Disposition: Discharged to home or Selfcare 12/21/2024 9:00 AM CDT Office Visit [facility] - Family Medicine - [place] [address] [place] [address] Antonino Bear MD [address] [address] Scheduled Procedures Name Priority Associated Diagnoses Date/Ti me TOTAL KNEE ARTHROPLASTY PRIMARY OSTEOARTHRITIS OF LEFT KNEE 12/12/2024 7:10 AM CDT documented as of this encounter Visit Diagnoses Not on filedocumented in this encounter Care Teams Dye Colorist Dyer Relationship Specialty Start Date End Date Antonino Bear MD [address] [facility] [address] [place] [address] PCP - General Family Medicine 12/18/21 documented as of this encounter
== END 2024-12-07 14:43 | disposition home or self-care (01) ==
LOC: ANHCARD 14:44
PROVIDERS: PCP Internal Medicine; Visit Provider Physician Assistant
DX: R94.31 Abnormal electrocardiogram [ECG] [EKG] (principal)
CPT/HCPCS: 93306